=== PATIENT | female | born 1965 | race Caucasian/White ===

== ENCOUNTER → 2019-06-27 | Outpatient (CLI) | payer BC | END | disposition home or self-care (01) | LOC: LAB SHORT 14:48 → PLD 14:48 | DX: D23.5 Other benign neoplasm of skin of trunk (principal) | CPT/HCPCS: 88305 ==

== ENCOUNTER 2020-01-08 10:17 | Day surgery (SDC) | payer BC ==
[~2020-01-08] VITALS: Ht 154.9 cm; Wt 49.4 kg
--- NOTE | 2020-01-08 12:35 | NUR ---
01/08/20 1235 Ayah Hernandez JUST BEFORE DISCHARGE PT GETS DRESSED AND COMPLAINS THAT RIGHT CALF HURTS. DR LAW INFORMED. PT IS ENCOURAGED TO DRINK PLENTY OF FLUIDS TODAY AND TO CALL PCP IF CALF PAIN IS NOT IMPROVING. PT AND HER STATE THEY UNDERSTAND INSTRUCTIONS.
== END 2020-01-08 12:35 | disposition home or self-care (01) ==
LOC: ORSCSDS 10:17
PROVIDERS: Internal Medicine Gastroenterology
PROC: 0DJD8ZZ Inspection of Lower Intestinal Tract, Via Natural or Artificial Opening Endoscopic (ICD-10-PCS; principal; 2020-01-08 11:45)
DX: Z12.11 Encounter for screening for malignant neoplasm of colon (principal); K64.8 Other hemorrhoids; Z87.891 Personal history of nicotine dependence
CPT/HCPCS: J2704; J7120